=== PATIENT | male | born 1945 | race Caucasian/White ===

== ENCOUNTER 2018-04-19 08:33 | Outpatient (CLI) | payer BC ==
[2018-04-19] MEDS ORDERED: Iopamidol 370 76% 100 ML VIAL ONE (09:00)
--- NOTE | 2018-04-19 13:01 | CT ---
CT CHEST WITH IV CONTRAST: HISTORY: Malignant neoplasm right bronchus lung. Restaging. COMPARISON: Images from [facility] dated 10/17/2017. Report is not available. FINDINGS: Lungs remain hyperinflated. Postoperative changes of the right lung appear to represent right middle lobectomy. Postoperative change of the right chest wall. The subpleural nodule at the posterolateral aspect of the left lower lobe is 0.4 cm diameter on today 's study where it was previously 0.6 cm. The pleural-based nodule at the posterior aspect of the rig ht lower lobe on the previous study is no longer visible. No new lung nodules. No pleural fluid or pneumothorax. Nonenlarged, nonspecific lymph nodes about the mediastinum are unchanged. There is calcification in the arterial structures. Within the partially visualized upper abdomen, the adrenal glands have a no rmal appearance. IMPRESSION: 1. Slight interval improvement compared to the 10/17/2017 study, with interval decrease in size of le ft lower lobe nodule and disappearance of a tiny right lower lobe nodule. No new abnormalities. 2. Postoperative changes, stable. 3. Atherosclerosis. POS: [facility]
== END 2018-04-19 08:34 | disposition home or self-care (01) ==
LOC: SCSCT 08:33 → EDBD 09:00
PROVIDERS: ATTEND Internal Medicine Hematology & Oncology
DX: C34.81 Malignant neoplasm of overlapping sites of right bronchus and lung (principal); I70.90 Unspecified atherosclerosis; Z98.890 Other specified postprocedural states
CPT/HCPCS: 71260; 82565

== ENCOUNTER 2018-06-30 03:44 | Outpatient (CLI) | payer BC ==
[2018-07-02 22:24] LABS: ALT (SGPT) 47 U/L (8-55); AST (SGOT) 38 U/L (5-34); Alkaline Phosphatase 83 U/L (40-150); Anion Gap 13 mmol/L (10-20); BUN (Urea Nitrogen) 22 mg/dL (8.4-25.7); Bilirubin, Total 0.4 mg/dL (0.2-1.2); Calc. Creatinine Clearance 0 mL/min (70-130); Calcium 9.7 mg/dL (7.8-10.44); Carbon Dioxide 27 mmol/L (23-31); Chloride 102 mmol/L (98-107); Estimated GFR-MDRD 48; Globulin 3.5 g/dL (2.4-3.5); Glucose 155 mg/dL (80-115); Potassium 5.1 mmol/L (3.5-5.1); Protein, Total 7.5 g/dL (5.8-8.1); Sodium 137 mmol/L (136-145)
== END 2018-06-30 03:45 | disposition home or self-care (01) ==
LOC: LABBT 03:44
PROVIDERS: ATTEND Internal Medicine Cardiovascular Disease
DX: Z01.818 Encounter for other preprocedural examination (principal); R94.39 Abnormal result of other cardiovascular function study
CPT/HCPCS: 80053; 93005; 93010

== ENCOUNTER 2018-10-09 07:34 | Outpatient (CLI) | payer BC ==
--- NOTE | 2018-10-09 09:58 | CT ---
Exam: CHEST CT WITH CONTRAST: COMPARISON: 04/19/2018, 10/17/2017, 04/14/2017. HISTORY: Malignant neoplasm of the right lung. FINDINGS: Nonenlarged, stable right paratracheal and prevascular lymph nodes. No evidence of lymphadenopathy. Heart size is normal. No significant pericardial fluid. Stable atherosclerosis and coronary artery ca lcifications. Stable hypoattenuation of the kidneys. Bilateral renal cysts are favored. Evaluation is incomplete. Trachea and central bronchi are patent. Right lung: Scattered linear opacities are felt to represent areas of scar and atelectasis. There is a stable calcified nodule adjacent to the major fissure. There is a subtle groundglass nodule in the right upper lobe, abutting the major fissure measuring 0.7 x 0.6 cm. This nodule is unchanged fro m the April 2018 exam. Nodule is difficult to appreciate on the examinations from 2018. However in retrospect, nodule was present in April 2017 at which time it measured 0.5 x 0.5 cm. No addition al masses or nodules are appreciated in the right lung. Left lung: No suspicious masses or nodules in the left upper lobe. There is 0.8 x 0.6 cm groundglass nodule in the medial superior segment of the left lower lobe and a second 0.7 x 0.6 cm groundglass nodule in the lateral aspect of the superior segment of the left lower lobe. Previously, the lateral nodule measured 0.5 x 0.5 cm and the medial nodule measured 0.6 x 0.5 cm. Since the previous exam, minimal growth in both groundglass nodules in the superior segment of the left lower lobe. There are no lytic or blastic lesions. IMPRESSION: 1. Redemonstration of two groundglass nodules in the superior segment of the left lower lobe. There d oes appear to be slight interval increase in size. 2. Slight interval increase in size of a subtle groundglass nodule in the right upper lobe. Transcribed Date/Time: 10/09/2018 10:12 AM
== END 2018-10-09 07:35 | disposition home or self-care (01) ==
LOC: SCSCT 07:34
PROVIDERS: ATTEND Internal Medicine Hematology & Oncology
DX: C34.91 Malignant neoplasm of unspecified part of right bronchus or lung (principal); R91.8 Other nonspecific abnormal finding of lung field
CPT/HCPCS: 71260; 82565

== ENCOUNTER 2019-01-02 07:35 | Outpatient (CLI) | payer BC ==
[2019-01-02] MEDS ORDERED: Iopamidol 370 76% 100 ML VIAL ONE (09:00)
--- NOTE | 2019-01-02 09:35 | CT ---
CT CHEST WITH CONTRAST: Date: 01/02/19 Multiple axial tomograms obtained through chest with multiplanar reconstruction. INDICATION: Malignant neoplasm of right bronchus. Lung cancer. COMPARISON: CT chest dated 10/09/18. FINDINGS: Stranding and plate-like atelectasis in the right upper lobe is again seen. There is an oblong-shaped nodular opacity within the fissure seen on image 37 of 72 axial, measuring up to 1.0 cm. This is sta ble. There is another faint nodular opacity in the more medial right upper lobe which is described pr eviously. This is seen today on image 32 of 72. It is less well defined today and has the appearance of parenchymal scarring rather than focal nodule. Parenchymal stranding in the right lower lobe peripherally extending to the pleural surface is again seen and stable. Review of the left lung again shows a nodular opacity in the superior segment of the left lower lobe seen on image 45 of 72, measuring in the 6-7 mm range. This nodule is stable. A faint nodular density seen more medial in this superior segment, image 43 of 72, is less pronounced today and measures in the 5 mm range on today's study. No significant interval change is apparent. No evidence of acute infiltrate. Mediastinum is unremarkable with nonspecific lymph nodes, which are stable. Thyroid unremarkable. Prominent aortic calcification is noted. Images through the upper abdomen unremarkable and stable. Osseous structures unremarkable. IMPRESSION: Stable lung findings when compared to 10/29/18, as detailed above. POS: [facility]
== END 2019-01-02 07:36 | disposition home or self-care (01) ==
LOC: SCSCT 07:35
PROVIDERS: ATTEND Internal Medicine Hematology & Oncology
DX: C34.81 Malignant neoplasm of overlapping sites of right bronchus and lung (principal)
CPT/HCPCS: 71260; 82565; Q9967

== ENCOUNTER 2019-05-04 14:42 | Outpatient (CLI) | payer BC ==
--- NOTE | 2019-05-04 15:09 | RAD ---
Lumbar spine 2 views: 05/04/2019 COMPARISON: None HISTORY: Back pain and sciatica FINDINGS: There is atherosclerotic calcification of the abdominal aorta. Anterolisthesis of L4 on L5 noted, measuring 1.1 cm. Significant facet hypertrophy at L3-4 and L4-5 noted. No acute fracture. Mild disc space narrowing at L3-4, L4-5, and L5-S1. Spina bifida occulta noted at S1. IMPRESSION: Lower lumbar spine degenerative change as described above. No acute fracture seen.
== END 2019-05-04 14:43 | disposition home or self-care (01) ==
LOC: BICRAD 14:42
PROVIDERS: ATTEND Family Medicine
DX: M54.42 Lumbago with sciatica, left side (principal); M47.816 Spondylosis without myelopathy or radiculopathy, lumbar region; M47.817 Spondylosis without myelopathy or radiculopathy, lumbosacral region
CPT/HCPCS: 72100

== ENCOUNTER 2019-07-03 07:24 | Outpatient (CLI) | payer BC ==
--- NOTE | 2019-07-03 08:54 | CT ---
EXAM: CT Chest W Con PROVIDED CLINICAL HISTORY: Lung cancer COMPARISON: 01/02/2019 FINDINGS: Conspicuous atherosclerotic vascular calcification and irregular mural plaque are noted involving the thoracic aorta, similar to prior. Coronary calcium is also demonstrated. Heart, pericardium and great vessels appear otherwise unremarkable. No evidence for thoracic lymph node enlargement. The airway appears patent and of normal caliber. Interval enlargement of right lower lobe pulmonary nodule (image 42 series 3). This measures about 6 mm in average axial dimension compared to about 4 mm on the prior. Stable nodular density left lower lobe. Scattered areas of parenchymal scarring appear stable. No pleural fluid, pleural thickening or pneumothorax apparent. The visualized portions of the upper a bdomen demonstrate a stable CT appearance. Left periscapular lipoma with overlying sebaceous cyst again seen. IMPRESSION: Interval enlargement of right lower lobe pulmonary nodule. Otherwise stable exam.
== END 2019-07-03 07:25 | disposition home or self-care (01) ==
LOC: SCSCT 07:24
PROVIDERS: ATTEND Internal Medicine Hematology & Oncology
DX: C34.81 Malignant neoplasm of overlapping sites of right bronchus and lung (principal)
CPT/HCPCS: 71260; 82565

== ENCOUNTER 2019-10-09 13:26 | Outpatient (CLI) | payer BC ==
--- NOTE | 2019-10-09 14:37 | CT ---
EXAM: CT angiogram abdomen and pelvis with and without IV contrast and 3-D reconstruction PROVIDED CLINICAL HISTORY: Abdominal aortic aneurysm without rupture. History of lung cancer. COMPARISON: None FINDINGS: There are diffuse vascular calcifications and irregular atherosclerotic plaque seen throughout the ab dominal aorta and involving the iliac arteries. There is a focal infrarenal abdominal aortic aneurysm which measures 4.6 cm in maximal dimensions. This aneurysm is located just above the level o f the aortic bifurcation but does not involve the iliac arteries; however, there is ectasia of the left common iliac artery which measures 1.9 cm. The aneurysm is located approximately 5.6 cm from the lowermost left renal artery. The abdominal aorta at the level of the renal arteries measures approximately 2.3 cm. There is moderate to severe focal narrowing involving the origin of the celiac artery. The superior m esenteric artery is patent. The origin of the inferior mesenteric artery is not well delineated, but there is probably at least moderate narrowing at the origin of the superior mesenteric artery. Si ngle patent bilateral renal arteries are present with atherosclerotic calcifications identified. There is mild narrowing at the origins of each common iliac artery. [id number] narrowing is see n at the origin of the left internal iliac artery. There is atherosclerotic irregularity and focal area of severe narrowing involving the proximal right internal iliac artery. The bilateral external i liac arteries are patent. There is mild atherosclerotic irregularity involving the right common femoral artery, but no significant narrowing is seen. Left common femoral artery is patent. The visua lized most proximal superficial femoral and profunda femoral arteries are patent. Coronary artery calcifications are present, and there are vascular calcifications in the visualized t horacic aorta. Calcified right hilar lymph nodes are seen. Linear scar versus atelectasis is present in the right middle lobe. There are hypodense bilateral renal lesions with larger lesions demonstrated fluid attenuation compat ible with renal cysts. Largest cyst is in the inferior pole right kidney which measures 7 cm. Largest cyst in the inferior pole left kidney measures 3.1 cm. Additional too small to characterize h ypodense lesions are seen in each kidney. The liver, spleen, pancreas, and bilateral adrenal glands demonstrate a normal CT appearance for alonzo rial phase of imaging. . Urinary bladder is decompressed. [place] of the urinary bladder appear thickened, but this is probabl y attributable to the decompressed nature of the urinary bladder. Prostate gland is enlarged measuring 5.6 cm in transverse dimensions. Small amount retained fecal material seen throughout the colon. The appendix is normal in caliber. Lo ops of small bowel are normal in caliber. No free fluid, fluid collection, or lymphadenopathy is seen in the abdomen or pelvis. Grade 1 anterolisthesis of L4 on L5 is present related to facet degenerative changes. IMPRESSION: 1. Infrarenal abdominal aortic aneurysm measuring 4.6 cm. 2. 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 There is limited evaluation of the origin of the JULIUS, but there is at least moderate narrowing at the origin of the JULIUS. SMA is patent. 3. Atherosclerotic irregularity involving the origins and proximal bilateral internal iliac arteries. Bilateral external iliac and femoral arteries are patent. 4. Bilateral renal cysts with too small to characterize hypodense lesions in each kidney.
== END 2019-10-09 13:27 | disposition home or self-care (01) ==
LOC: BICCT 13:26
PROVIDERS: ATTEND Thoracic Surgery (Cardiothoracic Vascular Surgery)
DX: I71.4 Abdominal aortic aneurysm, without rupture (principal); I77.1 Stricture of artery; K55.1 Chronic vascular disorders of intestine; N28.1 Cyst of kidney, acquired; N28.89 Other specified disorders of kidney and ureter
CPT/HCPCS: 74174; 82565

== ENCOUNTER 2019-11-06 08:11 | Outpatient (CLI) | payer BC ==
--- NOTE | 2019-11-06 10:25 | CT ---
CT CHEST WITH IV CONTRAST: Date: 11/06/2019 INDICATION: Malignant neoplasm. Lung cancer. Follow-up. Comparison made to chest CT of 07/03/2019. FINDINGS: The nodule in the posterior right lower lobe appears minimally larger today measuring approximately 7 -8 mm maximal dimension in the axial plane and approximately 8.0 mm craniocaudal dimension in the cor onal plane. Prior maximal axial dimension was approximately 6-7 mm and craniocaudal previously was 7. 0 mm. A tiny nodular density in the peripheral left lower lobe measuring in the 5.0 mm range is stable. Mild stranding in the right upper lobe peripherally is stable. No evidence of infiltrate or effusion. No other interval change. The mediastinum shows nonspecific lymph nodes which are stable. Atherosclerotic calcifications in the aorta again noted. Nonspecific axillary lymph nodes are unchanged. Images through upper abdomen appear stable with left renal cyst again noted. The osseous structures are unremarkable. IMPRESSION: Minimal enlargement of the right lower lobe nodule today as described above. Chest is otherwise stabl e. POS: [facility]
== END 2019-11-06 08:12 | disposition home or self-care (01) ==
LOC: SCSCT 08:11
PROVIDERS: ATTEND Internal Medicine Hematology & Oncology
DX: C34.90 Malignant neoplasm of unspecified part of unspecified bronchus or lung (principal); E04.9 Nontoxic goiter, unspecified
CPT/HCPCS: 71260; 82565

== ENCOUNTER 2020-07-29 14:39 | Outpatient (CLI) | payer BC ==
[2020-07-29 15:26] LABS: Anion Gap 14 mmol/L (10-20); BUN (Urea Nitrogen) 32 mg/dL (8.4-25.7); Calc. Creatinine Clearance 0 mL/min (70-130); Calcium 9.1 mg/dL (7.8-10.44); Carbon Dioxide 23 mmol/L (23-31); Chloride 105 mmol/L (98-107); Glucose 102 mg/dL (83-110); Potassium 5.4 mmol/L (3.5-5.1); Sodium 137 mmol/L (136-145)
[2020-07-29 15:42] LABS: #Eosinphils 0.3 10x3/uL (0.0-0.5); #Monocytes 0.7 10x3/uL (0.0-1.1); #Neutrophils 3.8 10x3/uL (1.5-8.4); %Basophils 0.5 % (0.0-2.0); %Eosinophils 3.2 % (0.0-6.0); %Lymphocytes 39.4 % (18.0-47.0); %Monocytes 8.9 % (0.0-10.0); %Neutrophils 47.8 % (40.0-75.0); Mean Corpuscular HGB CONC 31.3 g/dL (32.0-36.0); Mean Corpuscular Hemoglobin 29.4 pg (27.0-33.0); Mean Corpuscular Volume 94.1 fl (81.2-95.1); Mean Platelet Volume 11.7 fl (7.4-10.4); Platelet Count 196 10x3/uL (150-450); Red Blood Cell (RBC) Count 4.08 10x6/uL (4.32-5.72); White Blood Cell (WBC) Count 8.1 10x3/uL (3.5-10.5)
[2020-07-30 04:50] LABS: SARS-CoV-2 PCR by NAA Not Detected (NotDetected)
== END 2020-07-29 14:40 | disposition home or self-care (01) ==
LOC: LABBT 14:39
PROVIDERS: ATTEND Surgery
DX: Z01.818 Encounter for other preprocedural examination (principal); D17.1 Benign lipomatous neoplasm of skin and subcutaneous tissue of trunk; Z20.822 Contact with and (suspected) exposure to COVID-19
CPT/HCPCS: 71046; 80048; 85025; 87635; 93005; 93010; U0003; U0005

== ENCOUNTER 2020-10-22 14:51 | Outpatient (CLI) | payer BC | END 2020-10-22 14:52 | disposition home or self-care (01) | LOC: BICCT 14:51 | PROVIDERS: ATTEND Internal Medicine Critical Care Medicine | DX: R91.1 Solitary pulmonary nodule (principal); R91.8 Other nonspecific abnormal finding of lung field | CPT/HCPCS: 71250 ==

== ENCOUNTER 2023-12-30 09:30 | Outpatient (CLI) | payer MEDICARE | END 2023-12-30 09:31 | disposition home or self-care (01) | LOC: PET 09:30 | PROVIDERS: ATTEND Internal Medicine Critical Care Medicine | DX: R91.8 Other nonspecific abnormal finding of lung field (principal); R59.0 Localized enlarged lymph nodes; I71.43 Infrarenal abdominal aortic aneurysm, without rupture; J98.59 Other diseases of mediastinum, not elsewhere classified | CPT/HCPCS: 78815; A9552 ==

== ENCOUNTER 2024-01-18 07:23 | Outpatient (CLI) | payer MEDICARE ==
[2024-01-18] MEDS ORDERED: Iopamidol 370 76% 100 ML VIAL ONE (10:48)
== END 2024-01-18 07:24 | disposition home or self-care (01) ==
LOC: CT 07:23
PROVIDERS: ATTEND Otolaryngology Plastic Surgery within the Head & Neck
DX: H60.42 Cholesteatoma of left external ear (principal); J38.01 Paralysis of vocal cords and larynx, unilateral; R51.9 Headache, unspecified; I65.23 Occlusion and stenosis of bilateral carotid arteries; H73.92 Unspecified disorder of tympanic membrane, left ear; J98.59 Other diseases of mediastinum, not elsewhere classified; Z90.12 Acquired absence of left breast and nipple
CPT/HCPCS: 36415; 70450; 70480; 70491; 81001; 82565; 87086; Q9967

== ENCOUNTER 2024-01-25 08:52 | Outpatient (CLI) | payer MEDICARE ==
[2024-01-25 12:28] LABS: #Basophils 0.05 10x3/uL (0.0-0.2); %Basophils 0.8 % (0.0-1.0); %Eosinophils 2.7 % (0.0-10.0); %Lymphocytes 31.7 % (21.0-51.0); %Neutrophils 54.6 % (42.0-75.0); Hemoglobin 13.1 g/dL (14.0-18.0); Mean Corpuscular Hemoglobin 29.8 pg (27.0-31.0); Mean Corpuscular Volume 93.4 fL (78.0-98.0); Mean Platelet Volume 11.5 fL (7.4-10.4); Platelet Count 169 10x3/uL (130-400); RBC Distribution Width 13.5 % (11.5-14.5); Red Blood Cell (RBC) Count 4.39 mill/uL (4.70-6.10)
[2024-01-25 12:53] LABS: Anion Gap 13 mmol/L (10-20); BUN (Urea Nitrogen) 42 mg/dL (8.4-25.7); Calc. Creatinine Clearance 0 mL/min (70-130); Calcium 9.3 mg/dL (7.8-10.44); Carbon Dioxide 19 mmol/L (23-31); Chloride 109 mmol/L (98-107); Estimated GFR 35; Glucose 205 mg/dL (83-110); Potassium 5.3 mmol/L (3.5-5.1); Sodium 136 mmol/L (136-145)
== END 2024-01-25 08:53 | disposition home or self-care (01) ==
LOC: LABBT 08:52
PROVIDERS: ATTEND Thoracic Surgery (Cardiothoracic Vascular Surgery)
DX: Z01.818 Encounter for other preprocedural examination (principal); J98.59 Other diseases of mediastinum, not elsewhere classified
CPT/HCPCS: 80048; 85025; 93005; 93010

== ENCOUNTER 2024-01-30 06:35 | Day surgery (SDC) | payer MEDICARE ==
[2024-01-25 09:19] VITALS: BMI 31.8
[2024-01-30] MEDS ORDERED: EPINEPHrine 1 MG/ML VIAL ONE (06:52)
[2024-01-30] MEDS ORDERED: Bupivacaine PF 0.5% 30 ML VIAL ONE (06:52)
[2024-01-30] MEDS ORDERED: Fentanyl 250 MCG/5 ML VIAL ONE (07:06)
[2024-01-30] MEDS ORDERED: PROPOFOL 20 ML ONE (07:06)
[2024-01-30] MEDS ORDERED: ePHEDrine Sulfate 50 MG/10 ML VIAL ONE (07:09)
[2024-01-30] MEDS ORDERED: Rocuronium Bromide 10 MG/ML (10ML VIAL) ONE (07:09)
[2024-01-30] MEDS ORDERED: CEFAZOLIN 2 GM VIAL ONE (07:31)
[2024-01-30] MEDS ORDERED: PHENYLEPHRINE-NS 100 MCG/ML 10 ML SYRINGE ONE (07:57)
[2024-01-30] MEDS ORDERED: Ondansetron PF 4 MG/2 ML Vial ONE (07:58)
[2024-01-30] MEDS ORDERED: SUGAMMADEX SODIUM 200 MG/2 ML VIAL ONE ×2 (07:59→08:18)
[2024-01-30] MEDS ORDERED: fentaNYL 50 mcg/mL 1 mL Vial ONE ×2 (09:28→09:45)
== END 2024-01-30 10:52 | disposition home or self-care (01) ==
LOC: SDC 06:35
PROVIDERS: ATTEND Thoracic Surgery (Cardiothoracic Vascular Surgery)
PROC: 0WBC4ZX Excision of Mediastinum, Percutaneous Endoscopic Approach, Diagnostic (ICD-10-PCS; principal; 2024-01-30)
DX: C78.1 Secondary malignant neoplasm of mediastinum (principal); E11.9 Type 2 diabetes mellitus without complications; I10 Essential (primary) hypertension; I71.40 Abdominal aortic aneurysm, without rupture, unspecified; K21.9 Gastro-esophageal reflux disease without esophagitis; Z85.118 Personal history of other malignant neoplasm of bronchus and lung; Z86.16 Personal history of COVID-19; Z87.891 Personal history of nicotine dependence; Z85.51 Personal history of malignant neoplasm of bladder; Z95.5 Presence of coronary angioplasty implant and graft; Z90.2 Acquired absence of lung [part of]; Z98.890 Other specified postprocedural states; Z79.82 Long term (current) use of aspirin; Z79.899 Other long term (current) drug therapy
CPT/HCPCS: 39401; J0171; J0665; J2405; J2704; J3010 ×2; 88307; 88341; 88342

== ENCOUNTER 2024-03-07 05:57 | Day surgery (SDC) | payer MEDICARE ==
[2024-03-06 09:44] VITALS: BMI 30.9
[2024-03-07] MEDS ORDERED: EPINEPHrine 1 MG/ML VIAL ONE (06:48)
[2024-03-07] MEDS ORDERED: Bupivacaine PF 0.5% 30 ML VIAL ONE (06:48)
[2024-03-07] MEDS ORDERED: CEFAZOLIN 2 GM VIAL ONE (06:55)
[2024-03-07] MEDS ORDERED: PROPOFOL 20 ML ONE (07:00)
[2024-03-07] MEDS ORDERED: Lidocaine 1% PF 5 ML VIAL ONE (07:00)
[2024-03-07] MEDS ORDERED: Ondansetron PF 4 MG/2 ML Vial ONE ×2 (07:00→07:17)
[2024-03-07] MEDS ORDERED: fentaNYL 50 mcg/mL 1 mL Vial ONE (07:00)
[2024-03-07] MEDS ORDERED: PHENYLEPHRINE-NS 100 MCG/ML 10 ML SYRINGE ONE (07:13)
== END 2024-03-07 09:05 | disposition home or self-care (01) ==
LOC: SDC 05:57
PROVIDERS: ATTEND Thoracic Surgery (Cardiothoracic Vascular Surgery)
PROC: 0JH63WZ Insertion of Totally Implantable Vascular Access Device into Chest Subcutaneous Tissue and Fascia, Percutaneous Approach (ICD-10-PCS; principal; 2024-03-07)
DX: C34.91 Malignant neoplasm of unspecified part of right bronchus or lung (principal); I10 Essential (primary) hypertension; I71.40 Abdominal aortic aneurysm, without rupture, unspecified; E11.9 Type 2 diabetes mellitus without complications; E78.5 Hyperlipidemia, unspecified; Z90.2 Acquired absence of lung [part of]; Z95.5 Presence of coronary angioplasty implant and graft; Z87.891 Personal history of nicotine dependence; Z85.51 Personal history of malignant neoplasm of bladder; Z79.82 Long term (current) use of aspirin; Z79.899 Other long term (current) drug therapy
CPT/HCPCS: 36561; 71045; 78815; 82962; A9552; C1788; J0171; J1642; J2405; J2704; J3010; 36416; J0665

== ENCOUNTER 2024-03-07 10:15 | Outpatient (CLI) | payer MEDICARE | END 2024-03-07 10:16 | disposition home or self-care (01) | LOC: PET 10:15 | PROVIDERS: ATTEND Internal Medicine Hematology & Oncology | DX: C34.81 Malignant neoplasm of overlapping sites of right bronchus and lung (principal) | CPT/HCPCS: 78815; A9552 ==

== ENCOUNTER 2024-03-29 16:45 | Inpatient (IN) | payer MEDICARE ==
[2024-03-29 17:06] LABS: Hematocrit 34.6 % (42.0-52.0); Hemoglobin 11.1 g/dL (14.0-18.0); Mean Corpuscular HGB CONC 32.1 g/dL (32.0-36.0); Mean Corpuscular Volume 93.5 fL (78.0-98.0); Mean Platelet Volume 10.2 fL (7.4-10.4); Platelet Count 152 10x3/uL (130-400); RBC Distribution Width 13.6 % (11.5-14.5)
[2024-03-29 17:16] LABS: ALT (SGPT) 18 U/L (8-55); AST (SGOT) 17 U/L (5-34); Albumin 2.9 g/dL (3.4-4.8); Alkaline Phosphatase 72 U/L (40-110); Anion Gap 15 mmol/L (10-20); BUN (Urea Nitrogen) 39 mg/dL (8.4-25.7); Bilirubin, Total 0.3 mg/dL (0.2-1.2); Calc. Creatinine Clearance 0 mL/min (70-130); Calcium 8.6 mg/dL (7.8-10.44); Carbon Dioxide 16 mmol/L (23-31); Chloride 111 mmol/L (98-107); Estimated GFR 28; Globulin 3.7 g/dL (2.4-3.5); Glucose 187 mg/dL (83-110); Magnesium 1.3 mg/dL (1.6-2.6); Potassium 5.6 mmol/L (3.5-5.1); Protein, Total 6.6 g/dL (5.8-8.1); Sodium 136 mmol/L (136-145)
[2024-03-29 17:21] LABS: Troponin I 0.025 ng/mL (< 0.028)
[2024-03-29 18:11] LABS: Band 7 % (5-11); Burr Cells SLIGHT = 2-5 cells HPF (0-1); Eosinophils 3 % (0-10); Large Platelets 8.9 % (0-5); Lymphocytes 34 % (21-51); Monocytes 15 % (0-10); Neutrophil 39 % (42-75); Platelet Adequacy Comment Platelets Normal; Reactive Lymphocytes 1 % (0-10); Smudge Cells 8.9 %
[2024-03-29] MEDS ORDERED: Magnesium 2 GM/50 ML BAG (IN WATER) ONE (18:11)
[2024-03-29] MEDS ORDERED: Ondansetron ODT 4 MG TAB PO PRN (19:16)
[2024-03-29] MEDS ORDERED: Insulin Lispro 100 UNIT/ML 10 ML VIAL SC PRN (19:16)
[2024-03-29] MEDS ORDERED: Ondansetron PF 4 MG/2 ML Vial IVP PRN (19:16)
[2024-03-29] MEDS ORDERED: Glucagon 1 MG/ML KIT IM PRN (19:16)
[2024-03-29] MEDS ORDERED: Acetaminophen 650 MG Suppository PR PRN (19:16)
[2024-03-29] MEDS ORDERED: Dextrose 5% in Water 1,000 ML IV PRN (19:16)
[2024-03-29] MEDS ORDERED: Dextrose 50% Abboject 50 ML SYRINGE SLOW IVP PRN (19:16)
[2024-03-29] MEDS ORDERED: Sodium Bicarb 50 MEQ/50 ML Abboject 8.4% SYRINGE ONE (19:20)
[2024-03-29] MEDS: Sodium Bicarbonate 150 MEQ in Dextrose 5% in Water 1,000 ML IV SCH (21:37)
[2024-03-29] MEDS: LOKELMA 10 GM PACKET PO SCH (21:37)
[2024-03-29] MEDS: Pantoprazole DR 40 MG TAB PO SCH (21:44)
[2024-03-29] MEDS: Carvedilol 25 MG TAB PO SCH (21:44)
[2024-03-29] MEDS: Heparin 5,000 UNITS/ML VIAL SC SCH (21:44)
[2024-03-29] MEDS: Gabapentin 100 MG CAP PO SCH (21:49)
[2024-03-30 06:24] LABS: Hematocrit 28.9 % (42.0-52.0); Hemoglobin 9.6 g/dL (14.0-18.0); Mean Corpuscular HGB CONC 33.2 g/dL (32.0-36.0); Mean Corpuscular Volume 90.3 fL (78.0-98.0); Mean Platelet Volume 10.6 fL (7.4-10.4); Platelet Count 136 10x3/uL (130-400); RBC Distribution Width 13.5 % (11.5-14.5)
[2024-03-30 06:29] LABS: Phosphorus 2.1 mg/dL (2.3-4.7)
[2024-03-30 06:31] LABS: Anion Gap 11 mmol/L (10-20); BUN (Urea Nitrogen) 35 mg/dL (8.4-25.7); Calc. Creatinine Clearance 52 mL/min (70-130); Calcium 7.9 mg/dL (7.8-10.44); Carbon Dioxide 20 mmol/L (23-31); Chloride 107 mmol/L (98-107); Estimated GFR 40; Glucose 158 mg/dL (83-110); Magnesium 1.5 mg/dL (1.6-2.6); Potassium 4.4 mmol/L (3.5-5.1); Sodium 134 mmol/L (136-145)
[2024-03-30 06:46] LABS: Band 4 % (5-11); Eosinophils 2 % (0-10); Large Platelets 6.6 % (0-5); Lymphocytes 34 % (21-51); Monocytes 17 % (0-10); Neutrophil 42 % (42-75); Platelet Adequacy Comment Platelets Normal; RBC Morphology Within Normal Limits; Smudge Cells 12.3 %
[2024-03-30] MEDS: Atorvastatin Calcium 40 MG TAB PO SCH (09:37)
[2024-03-30] MEDS: Carvedilol 25 MG TAB PO SCH (09:37)
[2024-03-30] MEDS: Aspirin 81 mg Enteric Coated Tablet PO SCH (09:37)
[2024-03-30] MEDS: Magnesium 2 GM/50 ML(in water) 2 GM in Premix 1 BAG IVPB SCH (11:38)
[2024-03-30] MEDS: PHOS-NAK 1 PKT PACK PO SCH (14:56)
[2024-03-30] MEDS: Sodium Bicarbonate Tab 325 MG TAB PO SCH (14:56)
[2024-03-30 16:39] LABS: Phosphorus 2.6 mg/dL (2.3-4.7)
[2024-03-30] MEDS: Acetaminophen 325 MG TAB PO PRN (21:16)
[2024-03-31 06:08] LABS: ALT (SGPT) 29 U/L (8-55); AST (SGOT) 28 U/L (5-34); Albumin 2.6 g/dL (3.4-4.8); Alkaline Phosphatase 80 U/L (40-110); Anion Gap 12 mmol/L (10-20); BUN (Urea Nitrogen) 35 mg/dL (8.4-25.7); Bilirubin, Total 0.2 mg/dL (0.2-1.2); Calc. Creatinine Clearance 58 mL/min (70-130); Calcium 8.4 mg/dL (7.8-10.44); Carbon Dioxide 19 mmol/L (23-31); Chloride 108 mmol/L (98-107); Estimated GFR 46; Globulin 3.5 g/dL (2.4-3.5); Glucose 158 mg/dL (83-110); Magnesium 2.1 mg/dL (1.6-2.6); Protein, Total 6.1 g/dL (5.8-8.1); Sodium 134 mmol/L (136-145)
[2024-03-31 06:13] LABS: Hematocrit 31.9 % (42.0-52.0); Hemoglobin 10.2 g/dL (14.0-18.0); Mean Corpuscular Hemoglobin 29.8 pg (27.0-31.0); Mean Corpuscular Volume 93.3 fL (78.0-98.0); Mean Platelet Volume 10.5 fL (7.4-10.4); Platelet Count 155 10x3/uL (130-400); RBC Distribution Width 13.6 % (11.5-14.5); Red Blood Cell (RBC) Count 3.42 mill/uL (4.70-6.10)
[2024-03-31 06:59] LABS: Anisocytosis SLIGHT = 6-15 cells HPF (0-5); Band 4 % (5-11); Eosinophils 8 % (0-10); Large Platelets 2.9 % (0-5); Lymphocytes 32 % (21-51); Macrocytosis SLIGHT = 6-15 cells HPF (0-5); Monocytes 25 % (0-10); Neutrophil 27 % (42-75); Platelet Adequacy Comment Platelets Normal; Smudge Cells 5.9 %
[2024-03-31 12:16] VITALS: BP 108/52; TEMP 98.1
[2024-03-31] MEDS ORDERED: Acetaminophen/Codeine 30-300mg Tablet PO PRN (12:54)
[2024-03-31] MEDS ORDERED: Promethazine 25 MG TAB PO PRN (12:54)
[2024-03-31] MEDS ORDERED: Ondansetron ODT 8 MG TAB PO PRN (12:54)
[2024-03-31] MEDS ORDERED: Prochlorperazine Maleate 5 MG TAB PO PRN (12:59)
[2024-03-31] MEDS ORDERED: Semaglutide [Ozempic] 0.25 MG/0.368 ML Pen.Injctr SC PRN (13:01)
[2024-03-31] MEDS ORDERED: Sodium Bicarbonate Tab 325 MG TAB PO SCH (15:00)
[2024-04-01] MEDS ORDERED: Ezetimibe 10 MG TAB PO SCH (09:00)
[2024-04-02] MEDS ORDERED: Calcitriol 0.25 MCG CAP PO SCH (09:00)
== END 2024-03-31 14:45 | disposition home or self-care (01) | DRG 683 ==
LOC: SUATTDRO 16:45 → ERS 16:45 → IMCU/EMU 19:19 → 2NO 03-30 14:54 → IMCU/EMU 03-30 15:18 → 2NO 03-30 17:56
PROVIDERS: ADMIT Family Medicine; ATTEND Family Medicine
DX: N17.9 Acute kidney failure, unspecified (principal); C34.90 Malignant neoplasm of unspecified part of unspecified bronchus or lung; E87.20 Acidosis, unspecified; I48.92 Unspecified atrial flutter; I25.10 Atherosclerotic heart disease of native coronary artery without angina pectoris; E87.5 Hyperkalemia; D63.1 Anemia in chronic kidney disease; N18.30 Chronic kidney disease, stage 3 unspecified; E86.0 Dehydration; E11.22 Type 2 diabetes mellitus with diabetic chronic kidney disease; I12.9 Hypertensive chronic kidney disease with stage 1 through stage 4 chronic kidney disease, or unspecified chronic kidney disease; N25.81 Secondary hyperparathyroidism of renal origin; E83.42 Hypomagnesemia; Z79.82 Long term (current) use of aspirin; Z79.01 Long term (current) use of anticoagulants; Z79.899 Other long term (current) drug therapy
CPT/HCPCS: 36415; 36416; 71045; 80048; 80053; 83735; 83880; 83970; 84100; 84484; 85025; 93005; 93306; 96374; 96375; J1642; J1644; J3475; J7070

== ENCOUNTER 2024-05-28 07:51 | Outpatient (CLI) | payer MEDICARE ==
[2024-05-28] MEDS ORDERED: Iopamidol 370 76% 100 ML VIAL ONE (14:58)
== END 2024-05-28 07:52 | disposition home or self-care (01) ==
LOC: BICCT 07:51
PROVIDERS: ATTEND Internal Medicine Hematology & Oncology
DX: C34.81 Malignant neoplasm of overlapping sites of right bronchus and lung (principal); M89.9 Disorder of bone, unspecified
CPT/HCPCS: 71260; 74177; Q9967

== ENCOUNTER 2024-08-17 19:27 | Emergency (ER) | payer MEDICARE ==
[2024-08-17] MEDS ORDERED: Morphine 4 MG/ML VIAL ONE (20:46)
== END 2024-08-17 20:55 | disposition home or self-care (01) ==
LOC: ERS 19:27
DX: S42.211A Unspecified displaced fracture of surgical neck of right humerus, initial encounter for closed fracture (principal); W22.01XA Walked into wall, initial encounter
CPT/HCPCS: 73030; 96372; 99283; J2270